=== PATIENT | male | born 1985 | race Caucasian/White ===

== ENCOUNTER 2017-10-18 19:17 | Emergency (ER) | payer SELFPAY ==
[~2017-10-18] VITALS: Ht 170.2 cm; Wt 54.4 kg
--- OUTSIDE RECORDS SUMMARY | 2017-10-18 19:31 | External Medical Summary Rpt | CCD ---
Author Author , KUMAR HEATH Address Unknown Phone [email or web address] Purpose Continuity of Care Document - through 2016
--- OUTSIDE RECORDS SUMMARY | 2017-10-18 19:31 | External Medical Summary Rpt | CCD ---
Author Author [facility] Organization [employer] Address Unknown Phone Unavailable Purpose Continuity of Care Document - through 2016
--- OUTSIDE RECORDS SUMMARY | 2017-10-18 19:31 | External Medical Summary Rpt | CCD ---
Author Author , KUMAR HEATH Address Unknown Phone [email or web address] Purpose Continuity of Care Document - through 2016
--- OUTSIDE RECORDS SUMMARY | 2017-10-18 19:32 | External Medical Summary Rpt | CCD ---
Demographics Preferred Language Montserratian Marital Status Unknown Voodoo Affiliation Unknown Race Unknown Ethnic Group Unknown Author Author , KUMAR HEATH Address Unknown Phone Immunization Unable to retrieve immunization data due to connection failure with Immunization Registry. Please try again later.
--- OUTSIDE RECORDS SUMMARY | 2017-10-18 19:32 | External Medical Summary Rpt | CCD ---
Demographics Preferred Language Ghanaian Marital Status Unknown Protestant Affiliation Unknown Race Unknown Ethnic Group Unknown Author Author , KUMAR HEATH Address Unknown Phone Immunization Unable to retrieve immunization data due to connection failure with Immunization Registry. Please try again later.
[2017-10-18] MEDS ORDERED: ZOLOFT100 MG PO (19:33)
[2017-10-18] MEDS ORDERED: DEPAKOTE 500MG500 MG PO (19:33)
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
[2017-10-18 20:42] LABS: HEMOGLOBIN 13.1 g/dL (14.1-18.0)
[2017-10-18 20:43] LABS: LYMPH # 3.7 K/mm3 (0.7-4.5); LYMPH % 33.7 % (10-50)
[2017-10-18 20:50] LABS: URINE BILIRUBIN - DIPSTICK NEGATIVE (NEG); URINE BLOOD TRACE-INTACT (NEG)
[2017-10-18 21:29] LABS: ABO BLOOD TYPE AB; ANTIHUMAN GLOB CROSSMATCH COMPAT; RH BLOOD TYPE POSITIVE
[2017-10-18 21:30] LABS: ANTIHUMAN GLOB CROSSMATCH COMPAT
[2017-10-18 21:52] VITALS: BP 64/48
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
== END 2017-10-18 22:10 | disposition short-term general hospital (02) ==
LOC: ER 19:17
PROVIDERS: Emergency Medicine; General Practice
PROC: 0T9B70Z Drainage of Bladder with Drainage Device, Via Natural or Artificial Opening (ICD-10-PCS; principal; 2017-10-18)
PROC: 0W9B00Z Drainage of Left Pleural Cavity with Drainage Device, Open Approach (ICD-10-PCS; 2017-10-18)
DX: S27.0XXA Traumatic pneumothorax, initial encounter (principal); W34.00XA Accidental discharge from unspecified firearms or gun, initial encounter
CPT/HCPCS: P9016